=== PATIENT | male | born 1980 | race Caucasian/White ===

== ENCOUNTER 2018-03-23 17:34 | Emergency (ER) | payer MEDICAID ==
[~2018-03-23] VITALS: Ht 180.3 cm; Wt 77.3 kg
[~2018-03-23 17:34] MED LIST: CLON-515 PO; FLUO20CA39 PO; LORA1TAB PO; NALT50TA PO; QUET400T3 PO; QUET50TA15 PO
[2018-03-23 17:52] VITALS: BP 139/78
[2018-03-23] MEDS ORDERED: dexamethasone sod phosphate 10mg/ml inj IM STA (18:45)
[2018-03-23] MEDS ORDERED: ketorolac tromethamine 15mg/ml inj. IM ONE (18:45)
[2018-03-23] MEDS ORDERED: GABA-532 PO (18:50)
== END 2018-03-23 19:06 | disposition home or self-care (01) ==
LOC: ER 17:35
DX: M54.5 Low back pain (principal); F12.90 Cannabis use, unspecified, uncomplicated; F15.90 Other stimulant use, unspecified, uncomplicated; Z79.899 Other long term (current) drug therapy
CPT/HCPCS: 96372; 99283; J1100; J1885

== ENCOUNTER 2018-04-07 19:50 | Emergency (ER) | payer MEDICAID ==
[~2018-04-07] VITALS: Ht 180.3 cm; Wt 78.1 kg
[~2018-04-07 19:50] MED LIST changes: +GABA-532 PO
[2018-04-07 20:04] VITALS: BP 137/87
[2018-04-07] MEDS ORDERED: ACET-2615 PO (22:39)
[2018-04-07] MEDS ORDERED: LIDO700A32 TP (22:39)
[2018-04-07] MEDS ORDERED: CYCL-1 PO (22:39)
[2018-04-07] MEDS ORDERED: cyclobenzaprine 10mg tablet PO ONE (22:40)
[2018-04-07] MEDS ORDERED: acetaminophen 325mg tablet PO ONE (22:40)
[2018-04-07] MEDS ORDERED: ketorolac trometh inj. 60 MG/2 ML VIAL IM ONE (22:40)
[2018-04-07] MEDS ORDERED: diltiazem 5mg/ml 5ml inj. IV ONE (22:55)
== END 2018-04-07 22:59 | disposition home or self-care (01) ==
LOC: ER 19:50
DX: G89.29 Other chronic pain (principal); M54.9 Dorsalgia, unspecified; F12.90 Cannabis use, unspecified, uncomplicated; F15.90 Other stimulant use, unspecified, uncomplicated; Z79.899 Other long term (current) drug therapy
CPT/HCPCS: 96372; 99283; J1885

== ENCOUNTER 2019-11-08 13:26 | Emergency (ER) | payer MEDICAID ==
[~2019-11-08] VITALS: Ht 180.3 cm; Wt 80.0 kg
[~2019-11-08 13:26] MED LIST changes: +CYCL-1 PO; +LIDO700A32 TP; -QUET400T3 PO; +QUET400T5 PO
--- NOTE | 2019-11-08 14:22 | NUR ---
PT IS 39 YO MALE C/O LEFT ANKLE PAIN, SWELLING, BLISTER SINCE TUESDAY, PT SAID HE WAS "HIKING TOO FAST" AND FELL DOWN, TREATING HOME WITH EPSOM SALTS, AMB WITH SLIGHT LIMP TO FAST TRACK, WAITING TO BE EVALUATED BY PROVIDER
[2019-11-08] MEDS ORDERED: cephalexin 250mg capsule PO ONE (15:25)
[2019-11-08] MEDS ORDERED: CEPH-572 PO (15:29)
[2019-11-08 15:37] VITALS: BP 132/64
== END 2019-11-08 15:40 | disposition home or self-care (01) ==
LOC: ER 13:27
DX: S96.812A Strain of other specified muscles and tendons at ankle and foot level, left foot, initial encounter (principal); S90.522A Blister (nonthermal), left ankle, initial encounter; S90.552A Superficial foreign body, left ankle, initial encounter; M25.522 Pain in left elbow; R60.9 Edema, unspecified; G89.29 Other chronic pain; F31.9 Bipolar disorder, unspecified; F12.90 Cannabis use, unspecified, uncomplicated; F15.90 Other stimulant use, unspecified, uncomplicated; Z79.2 Long term (current) use of antibiotics; Z79.899 Other long term (current) drug therapy; X58.XXXA Exposure to other specified factors, initial encounter; Y93.89 Activity, other specified; Y92.89 Other specified places as the place of occurrence of the external cause; Y99.8 Other external cause status
CPT/HCPCS: 29515; 73610; 99283

== ENCOUNTER 2023-10-02 09:28 | Emergency (ER) | payer MEDICAID ==
[~2023-10-02] VITALS: Ht 180.3 cm; Wt 72.0 kg
[~2023-10-02 09:28] MED LIST changes: +CEPH-572 PO; -CLON-515 PO; +CLON2TAB45 PO
[2023-10-02 10:58] LABS: BASOPHILS % (AUTO) 0.2 % (0-1); EOSINOPHILS # (AUTO) 0.1 X10'3 (0-0.9); EOSINOPHILS % (AUTO) 0.4 % (0-6); NEUTROPHILS # (AUTO) 13.3 X10'3 (1.8-7.7); WHITE BLOOD COUNT 17.1 X10'3 (4.5-11.0)
[2023-10-02 10:59] LABS: LYMPHOCYTES # (AUTO) 2.1 X10'3 (1.1-4.8); LYMPHOCYTES % (AUTO) 12.5 % (21-51); MEAN CORPUSCULAR HEMOGLOBIN 29.8 PG (27.0-31.0); MEAN CORPUSCULAR HGB CONC 33.8 g/dL (33.0-36.5); MEAN CORPUSCULAR VOLUME 88.2 FL (78-98); MEAN PLATELET VOLUME 9.3 FL (7.4-10.4); MONOCYTES # (AUTO) 1.6 X10'3 (0-0.9); MONOCYTES % (AUTO) 9.3 % (2-12); NEUTROPHILS % (AUTO) 77.6 % (42-75); PLATELET COUNT 228 X10'3 (140-440); RED BLOOD COUNT 6.12 X10'6 (4.70-6.10); RED CELL DISTRIBUTION WIDTH 13.4 % (11.5-14.5)
[2023-10-02 11:10] LABS: HEMOGLOBIN 18.3 g/dl (14.0-17.9)
[2023-10-02 11:21] LABS: ALBUMIN 5.2 G/DL (3.4-5.0); ANION GAP 10 (8-16); BLOOD UREA NITROGEN 21 MG/DL (7-18); BUN/CREATININE RATIO 17.9 (10.0-20.0); CALCIUM 10.4 MG/DL (8.5-10.1); CHLORIDE 99 MMOL/L (99-107); CREATININE 1.17 MG/DL (0.60-1.10); ETHANOL < 10 MG/DL (<10); GLUCOSE 105 MG/DL (70-104); POTASSIUM 4.1 MMOL/L (3.5-5.1); SODIUM 137 MMOL/L (135-145); THYROID STIMULATING HORMONE 4.55 ulU/ml (0.34-4.50); TOTAL CARBON DIOXIDE 27.9 MMOL/L (24-32); eCRCL 85 ML/MIN; eGFR 69 ML/MIN
[2023-10-02 12:34] LABS: BILIRUBIN,URINE NEGATIVE (Neg); CLARITY,URINE SLIGHTLY CLOUDY (Clear); COLOR,URINE YELLOW (Yellow); GLUCOSE, URINE NEGATIVE (Neg); KETONES,URINE TRACE mg/dl (Neg); LEUKOCYTE ESTERASE ,URINE NEGATIVE (Neg); NITRITES, URINE NEGATIVE (Neg); OCCULT BLOOD,URINE TRACE-INTACT (Neg); PROTEIN,URINE NEGATIVE (Neg); UROBILINOGEN,URINE 0.2 E.U/dL (0.2-1.0)
[2023-10-02 12:36] LABS: UA COLLECTION TYPE CLN CATCH MIDSTREAM
[2023-10-02 12:37] LABS: URINE AMPHETAMINE SCREEN POSITIVE (Neg); URINE BARBITUATE SCREEN NEGATIVE (Neg); URINE BENZODIAZEPINES SCREEN NEGATIVE (Neg); URINE CANNABINOID SCREEN POSITIVE (Neg); URINE COCAINE SCREEN NEGATIVE (Neg); URINE METHADONE SCREEN NEGATIVE (Neg); URINE PHENCYCLIDINE SCREEN NEGATIVE (Neg)
[2023-10-02 12:39] LABS: HYALINE CASTS 0-3 /LPF (NEGATIVE); MUCUS STRANDS MANY /LPF (Neg); SQUAMOUS EPITHELIAL CELL,UR FEW /LPF (FEW)
[2023-10-02 12:40] LABS: BACTERIA,URINE FEW /HPF (Neg); RBC,URINE 0-2 /HPF (0-2); WBC,URINE 0-4 /HPF (0-4)
[2023-10-02] MEDS ORDERED: LORazepam 2 mg/ml vial IM ONE (13:35)
[2023-10-02] MEDS ORDERED: nicotine 21mg patch - 24 hr TD ONE (13:35)
[2023-10-02] MEDS: nicotine 14mg patch - 24hr TD ONE (13:40)
[2023-10-02] MEDS ORDERED: OLAN5TAB75 PO (14:24)
[2023-10-02] MEDS ORDERED: VENL150C58 PO (14:24)
[2023-10-02] MEDS ORDERED: BUPR1FIL56 SL (14:24)
[2023-10-02 15:52] VITALS: BP 128/74; PULSE 78; RESP 18; TEMP 98.2; O2SAT 99
[2023-10-02] MEDS: LORazepam 1 MG tablet PO ONE (16:13)
[2023-10-02] MEDS ORDERED: OLANZAPINE 5 MG TABLET PO SCH (21:00)
[2023-10-03] MEDS ORDERED: NALOXONE HCL SL SCH (08:00)
[2023-10-03] MEDS ORDERED: BUPRENORPHINE HCL SL SCH (08:00)
[2023-10-03] MEDS ORDERED: venlafaxine XR 75mg capsule (Q24H) PO SCH (08:00)
== END 2023-10-02 16:14 | disposition home or self-care (01) ==
LOC: ER 09:28
DX: F15.10 Other stimulant abuse, uncomplicated (principal); F31.89 Other bipolar disorder; F12.90 Cannabis use, unspecified, uncomplicated; Z20.822 Contact with and (suspected) exposure to COVID-19
CPT/HCPCS: 36415; 80048; 80305; 80320; 81001; 84145; 84443; 85025; 87811; 99283